=== PATIENT | male | born 1935 | race Caucasian/White ===

== ENCOUNTER → 2016-06-22 | Outpatient (CLI) | payer OTHER ==
[~2016-06-22] MED LIST: ALLOPURINOL 30300 M2 PO; ASPIR 8181 MG PO; CIALIS5 MG PO; COZAAR 50 MG TA50 M2 PO; DOXYCYCLINE 10100 MG PO; FLOMAX0.4 MG PO; HYDROCHLOROTH12.5 M1 PO; LEVOTHYROXINE0.05 MG PO; LIPITOR10 MG; SALMON OIL 1,01 EACH PO; VITAMIN D2000 UNIT PO; XALATAN2.5 ML OPHTHALMIC
[2016-06-22 07:58] LABS: CREATININE 1.2 mg/dL (0.7-1.3)
== END ==
LOC: CAT 07:25
PROVIDERS: Internal Medicine
DX: K57.30 Diverticulosis of large intestine without perforation or abscess without bleeding (principal); R10.9 Unspecified abdominal pain

== ENCOUNTER 2018-05-24 23:49 | Emergency (ER) | payer OTHER ==
[~2018-05-24] VITALS: Ht 170.2 cm; Wt 81.7 kg
[2018-05-25] MEDS ORDERED: METAMUCIL0.4 GM PO (00:08)
[2018-05-25 01:49] VITALS: BP 140/47
== END 2018-05-25 01:58 | disposition home or self-care (01) ==
LOC: ER 23:49
DX: S01.01XA Laceration without foreign body of scalp, initial encounter (principal); I10 Essential (primary) hypertension; M10.9 Gout, unspecified; E78.00 Pure hypercholesterolemia, unspecified; E07.9 Disorder of thyroid, unspecified; Z87.891 Personal history of nicotine dependence; W18.39XA Other fall on same level, initial encounter; Y93.89 Activity, other specified; Y92.89 Other specified places as the place of occurrence of the external cause; Y99.8 Other external cause status